=== PATIENT | female | born 1950 | race Caucasian/White ===

== ENCOUNTER → 2017-02-17 | Outpatient (CLI) | payer MEDICARE, OTHER ==
[~2017-02-17] MED LIST: no meds
--- NOTE | 2017-02-17 17:28 | RADRPT ---
PROCEDURE: XR pelvis/left hip. CLINICAL INDICATION: Hip pain TECHNIQUE: AP pelvis/lateral left hip view performed. COMPARISON: No prior studies are available for comparison. FINDINGS: There is a left total hip replacement. There is no evidence of loosening of the prosthesis. No hardw are failure identified. There is mild to moderate right hip osteoarthrosis. This is associated with joint space narrowing, s ubchondral sclerosis and osteophytosis. There is normal osseous mineralization. No fractures or os seous lesions are identified. The soft tissues are unremarkable. There are surgical clips in the pe lvis. IMPRESSION: Left total hip replacement. Mild to moderate right hip osteoarthrosis. RPTAT: HGDB .Gregorio Gonzales MD, Date Time Electronically viewed and signed by .Gregorio Gonzales MD, on 02/17/2017 17:28 .B/
--- NOTE | 2017-02-17 22:41 | HKNOTE ---
DATE OF SERVICE: 02/17/2017 MAIN COMPLAINT: Pain in the left hip. HISTORY OF MAIN COMPLAINT: Patient is a 66-year-old female who complains of pain in her left hip. She underwent a left total hip replacement by Dr. Sanabria at the [facility] in 03/2015. She has been pleased with the results of the surgery. Lately, she has developed some p ain over the lateral aspect of the left hip joint and she comes "to be sure there is nothing wrong a nd to discuss my limitations." PRESENT COMPLAINTS: The patient's pain in the left hip is localized over the greater trochanter and extends down the lateral aspect of the thigh to about the mid thigh level. Pain is aggravated by s tair climbing and sometimes while she is doing her yoga exercises. She sometimes gets rest pain. S he is not taking any medications for the pain except for an occasional ibuprofen. She has had histo ry of problems with her lower back which she had physical therapy, but no MRI scans were performed. On a level surface she can walk as far as she likes without a walking aid. It is very rare for her to limp, but she occasionally does do so. She does not have a shoe lift. It is painful for her to clip her toenails or tie her shoelaces. PAST ORTHOPEDIC HISTORY: Left hip [place] in [address] Sanabria. PRIOR CORTISONE INTAKE: None. ALCOHOL INTAKE: A glass of wine daily. OTHER JOINT PROBLEMS: None. BLOOD TESTS FOR ARTHRITIS: None. PRIOR INJURIES TO HIPS OR KNEES: The patient was thrown from a horse (? what injuries). 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 PAST SURGICAL HISTORY: Lumpectomy in 1988, negative. ALLERGIES: PENICILLIN. MEDICATIONS: None. FAMILY HISTORY: Father at 89 of "old age and heart problems." Mother at 77 of diabetes. SYSTEMS REVIEW: Occasional chest pain, occasional heartburn, tingling sensations in her hands at [facility]. Gait disturbance due to her hip. Otherwise, entirely negative. HABITS: The patient smoked cigarettes many years ago. She drinks an occasional glass of wine. 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 Estrella Marie. PHYSICAL EXAMINATION: GENERAL: The patient is an extremely fit looking and youthful 66-year-old female. She walks withou t a walking aid. Her gait is normal. VITAL SIGNS: Height 5 feet 5 inches, weight 125 pounds. Blood pressure 140/80, temperature 99.2. LEFT HIP: A full range of motion without pain. Marked tenderness over the iliotibial band extendin g from the greater trochanter to about a third of the way down the lateral thigh. RIGHT HIP: A full range of motion without pain. IMAGING: Plain x-rays of her pelvis and hips were obtained today at the [facility]. The left hip shows a hip replacement operation which has been technically well performed in ter ms of the alignment of the components. There is a strange desiccation/opacification of the bone imm ediately adjacent to the acetabular component uniformly distributed throughout the visible surface o f the acetabular component (? does this represent lysis?). MANAGEMENT: The patient declined a cortisone injection into the tender iliotibial band (she says "I will think about it and I might come back for the injection"). Considerable time was spent with her discussing her very physical life which includes a variety of d ifferent exercise forms. The types of exercises which put stress on the abductors of both hips were discussed with her. The patient will try to obtain the 3-month x-rays of her left hip replacement, so that I can compare today's appearance. Patient will be seen again as necessary for further evaluation and treatment. DIAGNOSES: 1. Trochanteric bursitis/iliotibial band tendinitis of the left hip. 2. Status post left hip replacement. Dictated By: MARKIE TIDWELL/CHUY Conf#: [id number] DID#: [id number]
== END | disposition home or self-care (01) ==
LOC: HKI 15:06
DX: M25.552 Pain in left hip (principal); M70.62 Trochanteric bursitis, left hip; M16.11 Unilateral primary osteoarthritis, right hip; I10 Essential (primary) hypertension; Z96.642 Presence of left artificial hip joint
CPT/HCPCS: 73502

== ENCOUNTER → 2017-03-18 | Outpatient (CLI) | payer MEDICARE, OTHER | END | disposition home or self-care (01) | LOC: HKI 09:13 | PROVIDERS: ATTEND Orthopaedic Surgery | DX: M25.552 Pain in left hip (principal); T84.84XA Pain due to internal orthopedic prosthetic devices, implants and grafts, initial encounter; Z96.642 Presence of left artificial hip joint | CPT/HCPCS: G0463 ==

== ENCOUNTER → 2017-04-13 | Outpatient (CLI) | payer MEDICARE, OTHER ==
--- NOTE | 2017-04-13 15:51 | RADRPT ---
PROCEDURE: Three-phase bone scan study CLINICAL INDICATION: 67 -year-old patient with left hip replacement, complaining of left hip pain. TECHNIQUE: Following the intravenous injection of 25.3 mCi of Tc-99m MDP, a three-phase bone scan study of the hips bilaterally was obtained. COMPARISON: No prior bone scan studies. X-ray of the left hip dated February 17, 2017. FINDINGS: Blood flow phase of the study demonstrates minimal asymmetric increase in blood flow surrounding the left hip as compared to the right. Blood pooling images reveal very mild asymmetric increase in blood pooling activity surrounding the left hip joint as compared to the right. Delayed images of both hips demonstrate evidence of a left hip replacement with mildly increased act ivity noted along the greater trochanter of the left hip, best visualized on the posterior view and at the tip of the prosthesis in the left proximal femur. IMPRESSION: 1. Evidence of the left hip replacement with very mild increase in blood flow and blood pooling act ivity surrounding the left knee joint and mildly increased tracer uptake along the greater trochante r of the left hip and in the proximal left femur. The findings may be seen in association with pros thesis loosening. 2. No other abnormal areas of increased uptake in the obtained limited views of both hips. RPTAT: HH .Yeny Singleton MD, Date Time Electronically viewed and signed by .Yeny Singleton MD, on 04/13/2017 15:50 .L/
== END | disposition home or self-care (01) ==
LOC: NUC 09:06
PROVIDERS: ATTEND Orthopaedic Surgery
DX: T84.84XA Pain due to internal orthopedic prosthetic devices, implants and grafts, initial encounter (principal); Z96.642 Presence of left artificial hip joint
CPT/HCPCS: 78315; A9503

== ENCOUNTER → 2017-04-22 | Outpatient (CLI) | payer MEDICARE, OTHER ==
--- NOTE | 2017-04-22 15:53 | RADRPT ---
PROCEDURE: US left inguinal region CLINICAL INDICATION: Left hip aspiration, left hip pain TECHNIQUE: Multiple sonographic images of the left inguinal region were obtained utilizing a linea r array transducer with grayscale and color-flow and a Doppler imaging. The images were reviewed on a high-resolution PACS workstation. The procedure was performed with and without Valsalva maneuver. COMPARISON: No prior studies are available for comparison. FINDINGS: No evidence of a left hip joint effusion or aspiration. No evidence of free fluid collection in the medial aspect of the patient's left upper thigh, in the area of pain. RPTAT: AA IMPRESSION: No evidence of a joint effusion. Aspiration was not performed under ultrasound guidance. The procedure will be attempted under fluoroscopic guidance. .Link Yates MD, Date Time Electronically viewed and signed by .Link Yates MD, on 04/22/2017 15:35 .S/
--- NOTE | 2017-04-22 17:35 | RADRPT ---
PROCEDURE: Left hip aspiration CLINICAL INDICATION: Pain, possible infection TECHNIQUE: After informed consent was obtained, the patients left hip was prepped and draped in u sual sterile fashion. 1% Lidocaine was used for local anesthesia. Under fluoroscopic guidance, a 20 gauge spinal needle was inserted into the hip joint. Approximately 12 ccs of cloudy yellow fluid wer e aspirated and sent for laboratory evaluation. The patient tolerated the procedure well and there were no immediate complications. Fluoroscopy time: 0.2 min Number of image(s): 2 COMPARISON: None FINDINGS: Left hip replacement. RPTAT: AA IMPRESSION: Successful left hip aspiration. 12 cc of cloudy yellow fluid were aspirated, suspicious for infection. .Link Yates MD, MD Date Time Electronically viewed and signed by .Link Yates MD, on 04/22/2017 17:34 .S/
[2017-04-22 20:20] LABS: FLUID APPEARANCE CLOUDY; FLUID TYPE OTHERS
[2017-04-22 22:07] LABS: FLUID NEUTROPHILS 62 %; FLUID RBC EST 0; FLUID WBC'S 154219 /cmm
[2017-04-22 22:08] LABS: FLUID LYMPHOCYTES 16 %; FLUID MONOCYTES 22 %
== END | disposition home or self-care (01) ==
LOC: RAD 14:44
PROVIDERS: ATTEND Orthopaedic Surgery
DX: T84.84XA Pain due to internal orthopedic prosthetic devices, implants and grafts, initial encounter (principal); G89.18 Other acute postprocedural pain; Z96.642 Presence of left artificial hip joint; Y83.8 Other surgical procedures as the cause of abnormal reaction of the patient, or of later complication, without mention of misadventure at the time of the procedure
CPT/HCPCS: 76536; 77002; 87070; 87075; 87102; 87116; 89050

== ENCOUNTER → 2017-05-11 | Outpatient (CLI) | payer MEDICARE, OTHER ==
[~2017-05-11] MED LIST changes: +IOHEXOL 300MG/ML 30 ML BTL ONE
--- NOTE | 2017-05-11 15:20 | RADRPT ---
PROCEDURE: Left hip arthrogram and aspiration. CLINICAL INDICATION: Left hip pain. Postop left hip arthroplasty. TECHNIQUE: Prior to the procedure, informed consent was obtained. The patient's name, date of , and procedure to be performed were verified. Using local anesthetic, sterile technique and fluo roscopic guidance, a 20-gauge spinal needle was advanced into the left hip joint. Five cc of Omnipa que-300 contrast was injected into the joint. 7 ml of cloudy yellow fluid was aspirated. Fluid was sent for laboratory analysis. COMPARISON: 04/22/2017 FINDINGS: Images demonstrate a total left hip arthroplasty. Subsequent images demonstrate contrast injection in the joint region. 0.2 minutes of fluoroscopy time was used. 12 images of the left hip were obtai bonny with image intensifier. IMPRESSION: 1. Satisfactory left hip arthrogram and aspiration. RPTAT: QQ .Darío Palma MD, Date Time Electronically viewed and signed by .Darío Palma MD, on 05/11/2017 15:19 .R/
== END | disposition home or self-care (01) ==
LOC: RAD 12:56
PROVIDERS: ATTEND Orthopaedic Surgery
DX: T84.84XA Pain due to internal orthopedic prosthetic devices, implants and grafts, initial encounter (principal); Z96.642 Presence of left artificial hip joint
CPT/HCPCS: 77002; Q9967

== ENCOUNTER → 2017-05-15 | Outpatient (CLI) | payer MEDICARE, OTHER ==
[~2017-05-15] MED LIST changes: -IOHEXOL 300MG/ML 30 ML BTL ONE
== END | disposition home or self-care (01) ==
LOC: HKI 14:44
PROVIDERS: ATTEND Orthopaedic Surgery
DX: T84.84XA Pain due to internal orthopedic prosthetic devices, implants and grafts, initial encounter (principal); Y83.8 Other surgical procedures as the cause of abnormal reaction of the patient, or of later complication, without mention of misadventure at the time of the procedure
CPT/HCPCS: G0463

== ENCOUNTER → 2017-05-21 | Outpatient (CLI) | payer MEDICARE, OTHER ==
[~2017-05-21] MED LIST changes: +LIDOCAINE 1% (MDV) 20 ML INJ ONE
--- NOTE | 2017-05-21 15:29 | RADRPT ---
PROCEDURE: Left hip arthrogram and aspiration. CLINICAL INDICATION: Left hip pain. TECHNIQUE: Prior to the procedure, informed consent was obtained. The patient's name, date of bir th, and procedure to be performed were verified. Using local anesthetic, sterile technique and fluo roscopic guidance, a 20-gauge spinal needle was advanced into the left hip joint. Approximately 7 m l of opaque yellow fluid was aspirated. COMPARISON: Left hip joint aspiration dated 05/11/2017. FINDINGS: Images demonstrate a total left hip arthroplasty. Subsequent images demonstrate the needle in the l eft hip joint. 0.1 minutes of fluoroscopy time was used. 11 images were obtained. The specimen was sent for analysis in the provided containers. IMPRESSION: 1. Satisfactory left hip fluoroscopic guided joint aspiration. RPTAT: QQ .Darío Palma MD, Date Time Electronically viewed and signed by .Darío Palma MD, on 05/21/2017 15:29 .R/
== END | disposition home or self-care (01) ==
LOC: RAD 13:41
PROVIDERS: ATTEND Orthopaedic Surgery
DX: M25.552 Pain in left hip (principal)
CPT/HCPCS: 77002

== ENCOUNTER → 2017-06-10 | Outpatient (CLI) | payer MEDICARE, OTHER ==
[~2017-06-10] MED LIST changes: -LIDOCAINE 1% (MDV) 20 ML INJ ONE
== END | disposition home or self-care (01) ==
LOC: HKI 08:47
PROVIDERS: ATTEND Orthopaedic Surgery
DX: M25.552 Pain in left hip (principal); T84.52XA Infection and inflammatory reaction due to internal left hip prosthesis, initial encounter; Z96.642 Presence of left artificial hip joint
CPT/HCPCS: G0463

== ENCOUNTER → 2017-06-26 | Outpatient (CLI) | payer MEDICARE, OTHER | END | disposition home or self-care (01) | LOC: HKI 13:19 | PROVIDERS: ATTEND Orthopaedic Surgery | DX: M25.552 Pain in left hip (principal); Z96.642 Presence of left artificial hip joint | CPT/HCPCS: G0463 ==

== ENCOUNTER → 2017-07-10 | Outpatient (CLI) | payer MEDICARE, OTHER ==
[~2017-07-10] MED LIST changes: +IOHEXOL 300MG/ML 30 ML BTL ONE; +LIDOCAINE 1% (MDV) 20 ML INJ ONE; +LIDOCAINE 1% (MPF) 5 ML VIAL ONE
--- NOTE | 2017-07-10 15:37 | RADRPT ---
PROCEDURE: Ultrasound guided left hip fluid drainage CLINICAL INDICATION: Left hip fluid collection on MRI TECHNIQUE: Ultrasound guided drainage of a left hip fluid collection was performed. The risks arnulfo efits and alternatives of the procedure were explained to the patient. Informed written consent was obtained. A time-out was performed. The overlying skin of the lateral left hip was prepped and dr aped in the usual sterile fashion. Approximately 5 cc of lidocaine was injected locally into the sk in for pain control. Utilizing direct ultrasound guidance, a 21-gauge spinal needle was placed into the fluid collection within the lateral left hip soft tissues. Approximately 15 cc of cloudy yello w fluid was obtained. The patient tolerated the procedure well without complication. COMPARISON: None available FINDINGS: Approximately 15 cc of cloudy yellow fluid was obtained and sent to the lab for further evaluation. Postprocedural ultrasound demonstrated near-complete resolution of the previously seen collection, and revealed no immediate complications. IMPRESSION: 1. Successful ultrasound guided drainage of a left hip fluid collection, as above. RPTAT: QQ .Salomon Velasquez MD, Date Time Electronically viewed and signed by .Salomon Velasquez MD, on 07/10/2017 15:37 .R/
== END | disposition home or self-care (01) ==
LOC: RAD 14:03
PROVIDERS: ATTEND Orthopaedic Surgery
DX: M25.452 Effusion, left hip (principal)
CPT/HCPCS: Q9967

== ENCOUNTER 2019-01-17 06:43 | Day surgery (SDC) | payer MEDICARE, OTHER ==
[~2019-01-17] VITALS: Ht 165.1 cm; Wt 58.0 kg
[~2019-01-17 06:43] MED LIST changes: -IOHEXOL 300MG/ML 30 ML BTL ONE; -LIDOCAINE 1% (MDV) 20 ML INJ ONE; -LIDOCAINE 1% (MPF) 5 ML VIAL ONE
[2019-01-17 08:09] VITALS: BP 121/75; PULSE 73; RESP 18
[2019-01-17 08:21] VITALS: Ht 165.1 cm; Wt 58.0 kg
--- NOTE | 2019-01-17 08:26 | PREAC ---
Date/Time of Note Date/Time of Note DATE: 01/17/19 TIME: 08:25 Anesthesia Eval and Record Evaluation Time Pre-Procedure Interview DATE: 01/17/19 TIME: 08:25 Age 68 Sex female NPO: 8 hrs Preoperative diagnosis screening GERD Planned procedure EGD colonoscopy Past Medical History Past Medical History: Includes Cardio: Dyslipidemia Heme: Other (breast ca) Surgery & Anesthesia Issues No known issue Meds Anticoagulation: No Beta Mariana within 24 hr: No Reason Beta Mariana not given: Pt. not on B-Mariana Reported Medications [no meds] No Conflict Check 06/13/14 Meds reviewed: Yes Allergies Coded Allergies: Penicillins (Unverified Allergy, Mild, 06/13/14) Allergies Reviewed: Yes Labs/Studies Labs Reviewed: Reviewed by anesthesiologist test: N/A Studies: ECG (n/a), CXR (n/a) Pre-procedure Exam Airway: Adequate mouth opening Mallampati: Mallampati I Teeth: Normal Lung: Normal Heart: Normal ASA Physical Status ASA physical status: 2 Emergency: None Pre-operative Attestations Prior to commencing anesthesia and surgery, the patient was re-evaluated, there was verification of: *The patient's identity *The results of appropriate recent lab work and preoperative vital signs *The above evaluation not changing prior to induction *Anesthetic plan, risk benefits, alternative and complications discussed with patient/family; questions answered; patient/family understands, accepts and wishes to proceed. APRIL JONES MD Jan 17, 2019 08:26
[2019-01-17] MEDS ORDERED: PROPOFOL 20 ML ONE ×2 (08:27→08:56)
[2019-01-17] MEDS ORDERED: FENTAnyl 50 MCG/ML VIAL ONE (08:27)
[2019-01-17 09:25] VITALS: BP 146/71; PULSE 62; RESP 20
--- NOTE | 2019-01-17 10:30 | PAC ---
Date/Time of Note Date/Time of Note DATE: 01/17/19 TIME: 10:30 Post-Anesthesia Notes Post-Anesthesia Note Last documented vital signs Vital Signs Date Temp Pulse Resp B/P (MAP) Pulse Ox O2 O2 Flow FiO2 Time Delivery Rate 01/17/19 98.1 62 20 146/71 98 Room Air 09:25 (96) 01/17/19 98.0 08:09 Activity: WNL Respiratory function: WNL Cardiovascular function: WNL Mental status: Baseline Pain reasonably controlled: Yes Hydration appropriate: Yes Nausea/Vomiting absent: No APRIL JONES MD Jan 17, 2019 10:30
== END 2019-01-17 14:11 | disposition home or self-care (01) ==
LOC: GIL 06:43
PROVIDERS: ATTEND Internal Medicine Gastroenterology
DX: Z12.11 Encounter for screening for malignant neoplasm of colon (principal); K21.0 Gastro-esophageal reflux disease with esophagitis; K64.1 Second degree hemorrhoids; K57.30 Diverticulosis of large intestine without perforation or abscess without bleeding
CPT/HCPCS: 43239; G0121; J3010; 88305; 88312; 88313